=== PATIENT | male | born 1955 | race Caucasian/White ===

== ENCOUNTER 2023-10-23 18:54 | Emergency (ER) | payer MEDICARE, BC ==
[~2023-10-23] VITALS: Ht 185.4 cm; Wt 127.0 kg
[~2023-10-23 18:54] MED LIST: AMLO10; Chantix1 MG; LOSA25; METF500
[2023-10-23 19:49] LABS: BASOPHILS ABSOLUTE AUTO 0.01 K/mm3 (0.00-0.23); BASOPHILS PERCENT AUTO 0 % (0-2); EOSINOPHILS ABSOLUTE AUTO 0.01 K/mm3 (0.00-0.68); EOSINOPHILS PERCENT AUTO 0 % (0-6); Hematocrit 43.1 % (37.0-53.0); Hemoglobin 14.7 g/dL (13.5-17.5); IMMATURE GRAN ABSOLUTE AUTO 0.04 K/mm3 (0.00-0.10); IMMATURE GRAN PERCENT AUTO 0 % (0-1); LYMPHOCYTES ABSOLUTE AUTO 0.83 K/mm3 (0.84-5.20); LYMPHOCYTES PERCENT AUTO 8 % (21-46); MONOCYTES ABSOLUTE AUTO 0.49 K/mm3 (0.16-1.47); MONOCYTES PERCENT AUTO 5 % (4-13); Mean Corpuscular HGB 31.7 pg (26.0-34.0); Mean Corpuscular HGB Conc 34.1 g/dL (31.5-36.5); Mean Corpuscular Volume 93 fL (80-100); Mean Platelet Volume 10.3 fL (9.1-12.4); NEUTROPHILS ABSOLUTE AUTO 8.59 K/mm3 (1.96-9.15); NEUTROPHILS PERCENT AUTO 86 % (41-73); Platelet Count 173 K/mm3 (150-400); RDW Coefficient Variation 12.8 % (11.7-14.2); RDW Standard Deviation 43.7 fL (35.1-46.3); Red Blood Cell Count 4.63 M/mm3 (4.30-5.90); White Blood Cell Count 9.97 K/mm3 (4.00-11.30)
[2023-10-23 20:17] LABS: Albumin, Blood 3.8 g/dL (3.4-5.0); Albumin/Globulin Ratio 1.1 (0.8-1.8); Bilirubin, Total 0.5 mg/dL (0.1-1.0); Bun/Creatinine Ratio 20.2 (12.0-20.0); Calcium, Blood 9.3 mg/dL (8.5-10.1); Creatinine, Blood 0.89 mg/dL (0.60-1.20); Globulin, Blood 3.6 g/dL (2.2-4.0); Total Protein, Blood 7.4 g/dL (6.4-8.2)
[2023-10-23] MEDS ORDERED: ONDA4ODT MM (20:52)
[2023-10-23 21:00] VITALS: BP 159/91
== END 2023-10-23 21:21 | disposition home or self-care (01) ==
LOC: ER 18:54
PROVIDERS: Student in an Organized Health Care Education/Training Program
DX: R10.13 Epigastric pain (principal); R11.0 Nausea; E11.65 Type 2 diabetes mellitus with hyperglycemia; Z87.891 Personal history of nicotine dependence; Z79.84 Long term (current) use of oral hypoglycemic drugs; Z79.899 Other long term (current) drug therapy
CPT/HCPCS: 80053; 83690; 85025; 93005; 93010; 96374; 99283-25; A9270; J2405

== ENCOUNTER 2025-05-18 06:11 | Day surgery (SDC) | payer MEDICARE, BC ==
[~2025-05-18] VITALS: Ht 185.4 cm; Wt 118.1 kg
[~2025-05-18 06:11] MED LIST changes: +ONDA4ODT MM; +Tranexamic Acid 100 ML IV ONE
[2025-05-18] MEDS ORDERED: NS 100 ML IV ONE (06:21)
[2025-05-18] MEDS ORDERED: CeFAZolin Sodium 3,000 MG VIAL ONE (06:21)
[2025-05-18] MEDS ORDERED: FARXIGA10 MG PO (06:34)
[2025-05-18] MEDS ORDERED: BERBERINE500 MG PO (06:35)
[2025-05-18] MEDS ORDERED: OZEMPIC0.25 MG/02 SQ (06:36)
[2025-05-18] MEDS ORDERED: CeFAZolin Sodium 2,000 MG VIAL ONE (06:40)
[2025-05-18] MEDS ORDERED: Dexamethasone Sod Phos 10 MG/ML 1ML VIAL ONE ×2 (07:03→08:04)
[2025-05-18] MEDS ORDERED: Bupivacaine 0.5% HCl 5 MG/ML 30MLVIAL ONE (07:03)
[2025-05-18] MEDS ORDERED: Midazolam HCl 1MG / ML 2ML Vial ONE (07:04)
[2025-05-18] MEDS ORDERED: FentaNYL Citrate 50 MCG/ML 2 ML Injection ONE (07:04)
--- NOTE | 2025-05-18 07:19 | NUR ---
05/18/25 0719 ELIS SHOOK PT T/O 0710 O2 98% RA BIOX 98 ON 3L NC START BLOCK:714 END BLOCK: 717 O2 98% 3L O2 NC
[2025-05-18] MEDS ORDERED: Rocuronium Bromide 10 MG/ML 5ML Injection IV ONE (07:27)
[2025-05-18] MEDS ORDERED: Ondansetron HCl 2 MG / ML 2ML Vial ONE (08:04)
--- NOTE | 2025-05-18 08:04 | NUR ---
05/18/25 0804 Arcenio Valdivia [address] CONTRERAS AT 0752.
[2025-05-18] MEDS ORDERED: Tranexamic Acid 100 ML IV ONE (09:30)
--- NOTE | 2025-05-18 09:47 | NUR ---
05/18/25 0947 GalloChuck ARRIVES FOR IMAGING. PT REMAINS STABLE, DENIES PAIN AND NAUSEA AT THIS TIME. O2 SATURATIONS 96% ON RA.
[2025-05-18 09:57] VITALS: BP 139/87
[2025-05-18] MEDS ORDERED: Ipratropium/Albuterol SulF 2.5-0.5MG/3 ML Amp ONE (10:12)
--- NOTE | 2025-05-18 10:20 | NUR ---
05/18/25 1020 GalloChuck ADMINISTERED DUONEB BREATHING TREATMENT PER DR DIAMOND ORDERS. ENTERED MEDICATION IN EMAR MANUALLY DUONEB MEDICATION WOULD NOT SCAN.
== END 2025-05-18 11:47 | disposition home or self-care (01) ==
LOC: ORSCSDS 06:11
PROVIDERS: Orthopaedic Surgery
PROC: 0RRJ00Z Replacement of Right Shoulder Joint with Reverse Ball and Socket Synthetic Substitute, Open Approach (ICD-10-PCS; principal; 2025-05-18 07:30)
DX: M19.011 Primary osteoarthritis, right shoulder (principal); I10 Essential (primary) hypertension; F17.210 Nicotine dependence, cigarettes, uncomplicated; G47.33 Obstructive sleep apnea (adult) (pediatric); E11.9 Type 2 diabetes mellitus without complications; Z79.899 Other long term (current) drug therapy; Z79.84 Long term (current) use of oral hypoglycemic drugs; E66.9 Obesity, unspecified; Z68.34 Body mass index [BMI] 34.0-34.9, adult; Z79.85 Long-term (current) use of injectable non-insulin antidiabetic drugs
CPT/HCPCS: 73030; 82947; A9270; C1713; C1776; J0690; J1100; J2250; J2405; J2704; J3010; J7120